=== PATIENT | female | born 1975 | race Caucasian/White ===

== ENCOUNTER 2016-12-16 18:30 | Emergency (ER) | payer BC ==
[~2016-12-16] VITALS: Ht 162.6 cm; Wt 83.9 kg
[2016-12-16 18:45] VITALS: BP_SYST 113
[2016-12-16 19:22] LABS: BASOPHILS % (AUTO) 0.3 % (0.0-2.0); EOSINOPHILS # (AUTO) 0.2 K/uL (0.0-0.4); EOSINOPHILS % (AUTO) 1.4 % (0.0-4.0); HEMATOCRIT 34.5 % (36-48); HEMOGLOBIN 11.1 g/dL (12.0-16.0); LYMPHOCYTES # (AUTO) 2.1 K/uL (1.0-5.5); LYMPHOCYTES % (AUTO) 15.8 % (20.5-51.5); MEAN CORPUSCULAR HEMOGLOBIN 30 pg (27-31); MEAN CORPUSCULAR HGB CONC 32 % (32-36); MEAN CORPUSCULAR VOLUME 92 fL (79.0-98.0); MONOCYTES # (AUTO) 1.2 K/uL (0.0-1.0); MONOCYTES % (AUTO) 9.3 % (1.7-9.3); NEUTROPHILS # (AUTO) 9.6 K/uL (1.8-7.7); NEUTROPHILS % (AUTO) 73.2 % (40.0-70.0); PLATELET COUNT (AUTO) 272 K/uL (130-430); RED BLOOD CELL COUNT(AUTO) 3.76 MIL/uL (4.2-6.2); RED CELL DISTRIBUTION WIDTH 13.8 % (9.0-15.0); WHITE BLOOD COUNT (AUTO) 13.1 K/uL (4.8-10.8)
[2016-12-16 19:36] LABS: CALCIUM 8.8 mg/dL (8.4-11.0); CREATININE 0.52 mg/dL (0.55-1.30); POTASSIUM 3.6 mmol/L (3.5-5.1)
[2016-12-16 19:40] LABS: ALBUMIN 2.3 g/dL (3.4-4.8); TOTAL BILIRUBIN 0.2 mg/dL (0.0-1.0)
[2016-12-16 19:52] LABS: INR 0.9 (0.8-1.2); PROTHROMBIN TIME 10.3 SECS (9.5-12.5)
[2016-12-16 20:20] LABS: BILIRUBIN,URINE NEGATIVE (NEGATIVE); CLARITY/URINE SL HAZY (CLEAR); COLOR,URINE YELLOW (YELLOW); GLUCOSE,URINE 3+ (NEGATIVE); KETONES,URINE NEGATIVE (NEGATIVE); LEUKOCYTE ESTERASE ,URINE NEGATIVE (NEGATIVE); NITRITE, URINE NEGATIVE (NEGATIVE); PROTEIN URINE TRACE (NEGATIVE); UROBILINOGEN,URINE 0.2 (0.2-1.0)
[2016-12-16 20:21] LABS: BLOOD, URINE TRACE (NEGATIVE)
[2016-12-16 20:28] LABS: BACTERIA,URINE MODERATE /HPF (None Seen); RBC,URINE 0-3 /HPF (0-3)
[2016-12-16 20:29] LABS: MUCUS,URINE 1+ /LPF (None Seen)
[2016-12-16 20:35] VITALS: BP_SYST 113
== END 2016-12-16 20:35 | disposition left against medical advice (07) ==
LOC: SED 18:30
DX: O26.93 Pregnancy related conditions, unspecified, third trimester (principal); R07.89 Other chest pain; R79.1 Abnormal coagulation profile; Z3A.30 30 weeks gestation of pregnancy
CPT/HCPCS: 36415; 80053; 81000-TC; 83690-TC; 83880; 84484; 85025; 85379; 85610-TC; 85730-TC; 87086; 93005; 93970; 99285

== ENCOUNTER 2017-02-02 02:09 | Inpatient (IN) | payer BC ==
[~2017-02-02] VITALS: Ht 167.6 cm; Wt 84.8 kg
[2017-02-02] MEDS ORDERED: LR 1,000 ML IV SCH (02:12)
[2017-02-02] MEDS ORDERED: OXYTOCIN/NORMAL SALINE 1,000 ML IV SCH ×2 (02:12→17:53)
[2017-02-02] MEDS ORDERED: NALBUPHINE HCL 10 MG/ML AMP IVP PRN (02:15)
[2017-02-02] MEDS ORDERED: TERBUTALINE SULFATE 1 MG/ML VIAL SUBCUT ONE (02:15)
[2017-02-02 03:04] LABS: BASOPHILS % (AUTO) 0.3 % (0.0-2.0); EOSINOPHILS # (AUTO) 0.2 K/uL (0.0-0.4); EOSINOPHILS % (AUTO) 1.8 % (0.0-4.0); HEMATOCRIT 38.8 % (36-48); HEMOGLOBIN 13.1 g/dL (12.0-16.0); LYMPHOCYTES # (AUTO) 2.2 K/uL (1.0-5.5); LYMPHOCYTES % (AUTO) 18.1 % (20.5-51.5); MEAN CORPUSCULAR HEMOGLOBIN 31 pg (27-31); MEAN CORPUSCULAR HGB CONC 34 % (32-36); MEAN CORPUSCULAR VOLUME 91 fL (79.0-98.0); MONOCYTES # (AUTO) 0.9 K/uL (0.0-1.0); MONOCYTES % (AUTO) 7.5 % (1.7-9.3); NEUTROPHILS # (AUTO) 8.9 K/uL (1.8-7.7); NEUTROPHILS % (AUTO) 72.3 % (40.0-70.0); PLATELET COUNT (AUTO) 252 K/uL (130-430); RED BLOOD CELL COUNT(AUTO) 4.29 MIL/uL (4.2-6.2); RED CELL DISTRIBUTION WIDTH 14.3 % (9.0-15.0); WHITE BLOOD COUNT (AUTO) 12.2 K/uL (4.8-10.8)
[2017-02-02 03:13] VITALS: BP_SYST 120
[2017-02-02] MEDS ORDERED: FENT2mCg/mL-ROPIVA0.2%/NS EPID 150 ML EP ONE (07:20)
[2017-02-02] MEDS ORDERED: FENT2mCg/mL-ROPIVA0.2%/NS EPID 150 ML EP SCH (07:20)
[2017-02-02] MEDS ORDERED: OXYTOCIN/NORMAL SALINE 1,000 ML IV ONE (17:53)
[2017-02-02] MEDS ORDERED: RHO(D) IMMUNE GLOBULIN/MALTOSE 1500 UNITS/1.3 ML (WINHRO) IM PRN (18:00)
[2017-02-02] MEDS ORDERED: OXYCODONE/ACETAMINOPHEN 5-325 TABLET PO PRN ×2 (18:00)
[2017-02-02] MEDS: IBUPROFEN 600 MG TABLET PO SCH (18:00)
[2017-02-02] MEDS ORDERED: ANUSOL 1 EA SUPP.RECT (PREPARATION H) RC PRN (18:00)
[2017-02-02] MEDS ORDERED: LANOLIN 7 GM OINT. TP PRN (18:00)
[2017-02-02] MEDS ORDERED: GLYCERIN/WITCH HAZEL (TUCKS PADS) TP PRN (18:00)
[2017-02-02] MEDS ORDERED: HYDROCORTISONE 0.5%, 28.35 GM TOPICAL CREAM TP PRN (18:00)
[2017-02-02] MEDS ORDERED: ACETAMINOPHEN 325 MG TABLET PO PRN (18:00)
[2017-02-02] MEDS ORDERED: DERMOPLAST SPRAY TP PRN (18:00)
[2017-02-02] MEDS ORDERED: METHYLERGONOVINE MALEATE 0.2 MG TABLET PO PRN (18:00)
[2017-02-02] MEDS ORDERED: MEASLES,MUMPS&RUBELLA VACC/PF 12500 UNIT/0.5 ML VIAL SUBQ PRN (18:00)
[2017-02-02] MEDS ORDERED: TEMAZEPAM 15 MG CAPSULE PO PRN (21:00)
[2017-02-03] MEDS: SENNOSIDES/DOCUSATE SODIUM 1 TAB TABLET(SENOKOT-S) PO PRN (00:34)
[2017-02-03] MEDS: DOCUSATE SODIUM 100 MG CAPSULE PO PRN ×2 (00:34→10:02)
[2017-02-03] MEDS: IBUPROFEN 600 MG TABLET PO SCH ×2 (00:35→06:00)
[2017-02-03 06:58] LABS: HEMATOCRIT 34.7 % (36-48); HEMOGLOBIN 11.7 g/dL (12.0-16.0)
[2017-02-04] MEDS: DOCUSATE SODIUM 100 MG CAPSULE PO PRN
[2017-02-04] MEDS: SENNOSIDES/DOCUSATE SODIUM 1 TAB TABLET(SENOKOT-S) PO PRN
[2017-02-04] MEDS: IBUPROFEN 600 MG TABLET PO SCH ×2 (12:23)
== END 2017-02-04 14:10 | disposition home or self-care (01) | DRG 775 ==
LOC: SPU 02:09
PROVIDERS: ADMIT Obstetrics & Gynecology; ATTEND Obstetrics & Gynecology
PROC: 10E0XZZ Delivery of Products of Conception, External Approach (ICD-10-PCS; principal; 2017-02-02)
PROC: 3E0P3VZ Introduction of Hormone into Female Reproductive, Percutaneous Approach (ICD-10-PCS; 2017-02-02)
PROC: 10907ZC Drainage of Amniotic Fluid, Therapeutic from Products of Conception, Via Natural or Artificial Opening (ICD-10-PCS; 2017-02-02)
PROC: 3E0R3BZ Introduction of Anesthetic Agent into Spinal Canal, Percutaneous Approach (ICD-10-PCS; 2017-02-02)
PROC: 00HU33Z Insertion of Infusion Device into Spinal Canal, Percutaneous Approach (ICD-10-PCS; 2017-02-02)
PROC: 3E0134Z Introduction of Serum, Toxoid and Vaccine into Subcutaneous Tissue, Percutaneous Approach (ICD-10-PCS; 2017-02-02)
DX: O30.043 Twin pregnancy, dichorionic/diamniotic, third trimester (principal); O60.23X0 Term delivery with preterm labor, third trimester, not applicable or unspecified; Z37.2 Twins, both liveborn; Z3A.37 37 weeks gestation of pregnancy; O09.523 Supervision of elderly multigravida, third trimester; Z23 Encounter for immunization
CPT/HCPCS: 36415; 81002-TC; 85018-TC; 85025; 86592; 86886; 86900; 86901; J2590; J3010; J7120